=== PATIENT | female | born 1960 | race Caucasian/White ===

== ENCOUNTER 2023-03-05 06:37 | Emergency (ER) | payer MEDICARE, MEDICAID, SELFPAY ==
[2023-03-05 06:49] VITALS: BP 121/97; PULSE 106; RESP 18; TEMP 36.4; O2SAT 97
--- NOTE | 2023-03-05 06:55 | XRR_ITS ---
PROCEDURE INFORMATION: Exam: XR Left Shoulder Exam date and time: 03/05/2023 7:05 AM Age: 62 years old Clinical indication: Injury or trauma; Fall; Blunt trauma (contusions or hematomas); Shoulder; Left TECHNIQUE: Imaging protocol: Radiologic exam of the left shoulder. Views: 2 or more views. COMPARISON: No relevant prior studies available. FINDINGS: Bones/joints: Normal. Soft tissues: Normal. XR/XR shoulder LT min 2V* [id number] IMPRESSION: No acute findings.
--- NOTE | 2023-03-05 06:55 | XRR_ITS ---
PROCEDURE INFORMATION: Exam: XR Left Knee Exam date and time: 03/05/2023 7:05 AM Age: 62 years old Clinical indication: Injury or trauma; Fall; Blunt trauma; Knee; Left TECHNIQUE: Imaging protocol: Radiologic exam of the left knee. Views: 3 views. COMPARISON: No relevant prior studies available. FINDINGS: Bones/joints: Normal. Soft tissues: Normal. XR/XR knee LT 3V* [id number] IMPRESSION: No acute findings.
--- NOTE | 2023-03-05 06:55 | XRR_ITS ---
PROCEDURE INFORMATION: Exam: XR Chest Exam date and time: 03/05/2023 7:05 AM Age: 62 years old Clinical indication: Injury or trauma; Fall; Blunt trauma (contusions or hematomas) TECHNIQUE: Imaging protocol: Radiologic exam of the chest. Views: 1 view. COMPARISON: No relevant prior studies available. FINDINGS: Tubes, catheters and devices: Rectangular densities resembling spinal stimulator electrodes project over the lower thoracic spine. Alternatively, this may represent an external device. Lungs: Clear lungs. No focal consolidation. Pleural spaces: No large pleural effusion. No significant pneumothorax. Heart/Mediastinum: Cardiomediastinal silhouette is midline and within normal limits. Bones/joints: Osseous structures are within normal limits. XR/XR chest 1V portable [id number] IMPRESSION: No acute cardiopulmonary findings.
--- NOTE | 2023-03-05 06:55 | ED_ITS ---
HPI - Fall General: Chief Complaint: Fall Stated Complaint: fall, left side pain Time Seen by Provider: 03/05/23 06:51 Source: patient Mode of arrival: ambulatory Limitations: no limitations History of Present Illness: 62-year-old female states she fell yesterday. Ground-level fall states she had fell onto her left shoulder she states she had a fist her chest and it hit her in the middle of the chest. States today she has been having a sharp pain in the center of her chest along with her left shoulder worse with movement and palpation states she also hit her knee she has some minimal pain to her knee she denies any neck or head pain denies any loss consciousness Associated symptoms-after fall: Reports chest pain; Denies abdominal pain, headache(s) or neck pain Review of Systems Const: Denies: fever(s) or chills Eyes: Denies: eye discomfort ENMT: Denies: throat pain or dental pain Card: Reports: chest pain Resp: Denies: dyspnea GI: Denies: abdominal pain, nausea, vomiting or diarrhea Musc: Reports: extremity pain; Denies: neck pain or back pain Skin/Breast: Denies: rash Neuro: Denies: headache(s) Physical Exam Const: COMMON NORMALS: no acute distress, patient oriented x3 and healthy appearing HENMT: COMMON NORMALS: normocephalic and atraumatic HEAD & SCALP: normocephalic and atraumatic Eye: COMMON NORMALS: conjunctivae normal CONJUNCTIVA: Yes conjunctivae normal Neck/C-Spine: COMMON NORMALS: full ROM and supple CERVICAL SPINE: No pain with cervical ROM and No Cervical spine tenderness Chest: COMMONS NORMALS: normal inspection of the chest OTHER: Point tenderness in center of the chest Resp: COMMON NORMALS: normal respiratory effort, No retractions, No use of accessory muscles and clear to auscultation bilaterally AUSCULTATION: clear to auscultation bilaterally Cardio: COMMON NORMALS: regular rate, regular rhythm and No murmurs present (Cardio) RATE: regular rate RHYTHM: regular rhythm GI: COMMON NORMALS: Normal to inspection, nondistended, normoactive bowel sounds present, Soft to palpation, non-tender and no masses PALPATION: Yes Soft to palpation Extremity: COMMON NORMALS: normal to inspection and full ROM NARRATIVE EXTREMITY EXAM: Tenderness over left shoulder with no obvious deformity Neuro: COMMON NORMALS: patient oriented x3, moves all extremities and no focal motor deficits Psych: COMMON NORMALS: mental status grossly normal, Normal thought process present and cooperative THOUGHT PROCESS: Normal thought process present Skin: COMMON NORMALS: no rashes or lesions noted and no wounds GENERAL SKIN EXAM: no rashes or lesions noted Course Vital Signs: Vital signs: Vital Signs Temperature 97.6 F 03/05/23 06:49 Pulse Rate 89 03/05/23 07:37 Respiratory Rate 18 03/05/23 07:37 Blood Pressure 121/97 03/05/23 07:37 Pulse Oximetry 97 03/05/23 07:37 Oxygen Delivery Me thod Room Air 03/05/23 06:49 MDM - Fall Medical Decision Making Patient presents for chest wall and shoulder pain from a fall x-rays show no fracture she is well-appearing here we will prescribe her Naprosyn for home she is stable for discharge she is to follow-up with PCP and return if worsening she understands agrees to plan. Medical Records I reviewed the patient's medical records. Lab Data I reviewed the patient's lab results. Radiology Impressions Chest X-Ray 03/05/23 06:55 IMPRESSION: No acute cardiopulmonary findings. Knee X-Ray 03/05/23 06:55 IMPRESSION: No acute findings. Shoulder X-Ray 03/05/23 06:55 IMPRESSION: No acute findings. All radiology interpretation(s) finalized by discharge Discharge Plan Discharge Patient Disposition: Home Clinical Impression: Fall, Contusion Condition: Stable Prescriptions: New Naprosyn 500 mg tablet 500 mg PO BID PRN (Reason: pain) Qty: 20 0RF No Action ketoconazole 2 % shampoo 1 applic TOPICAL . DIRECTED trazodone 50 mg tablet 50 - 100 mg PO BEDTIME ibuprofen 800 mg tablet 800 mg PO DAILY PRN (Reason: Pain) pseudoephedrine-guaifenesin 60-600 mg tablet extended release 12 hr 1 tab PO BID PRN (Reason: Congestion) allopurinol 100 mg tablet 100 mg PO QAM estradiol 1 mg tablet 1 mg PO QAM levothyroxine 150 mcg tablet 150 mcg PO QAM metformin 500 mg tablet extended release 24 hr 500 mg PO QAM diazepam 5 mg tablet 5 mg PO TID PRN (Reason: Anxiety) rosuvastatin 10 mg tablet 10 mg PO BEDTIME topiramate 50 mg tablet 100 mg PO QAM fluocinonide 0.1 % cream 1 applic TOPICAL DAILY mometasone 0.1 % solution See Rx Instructions .ROUTE .COMPLEX Rx Instructions: APPLY FEW DROPS TOPICALLY TO THE AFFECTED AREA EVERY DAY Hair,Skin and Nails Tablet 1 tab PO DAILY Discharge Orders: Discharge ED (Routine); Ordered 03/05/23 Ordered By: Suze Jerome Referrals: Anton Hooper MD [Primary Care Provider] - 1-3 days Discharge Diet: Advance as tolerated Discharge Activity: Resume usual activity Patient Instructions: Contusion in Adults (ED) Coding Level of Care Code ED Casey Saw Operator for Khalif Rivas
[2023-03-05] MEDS: HYDROcodone-acetaminophen 5-325 mg Tablet 1 TAB PO (07:27)
[2023-03-05 07:37] VITALS: BP 121/97; PULSE 89; RESP 18; O2SAT 97
== END 2023-03-05 07:38 | disposition home or self-care (01) ==
PROVIDERS: Emergency Provider Emergency Medicine; PCP Family Medicine
DX: S20.214A Contusion of middle front wall of thorax, initial encounter (principal); S40.012A Contusion of left shoulder, initial encounter; W18.39XA Other fall on same level, initial encounter
CPT/HCPCS: 71045; 73030; 73562; 99284

== ENCOUNTER 2023-03-12 11:19 | Emergency (ER) | payer MEDICARE, MEDICAID, SELFPAY ==
[2023-03-12 11:24] VITALS: BP 139/82; PULSE 87; RESP 18; TEMP 36.6; O2SAT 97; BMI 44.9
--- NOTE | 2023-03-12 12:17 | W.ED.EXTPRO ---
Documented by User: Hyacinth Dodge PA-C 03/12/23 13:04 HPI - Extremity Problem General: Chief complaint: Extremity Injury, Upper Stated complaint: left shoulder pain/SOB Time Seen by Provider: 03/12/23 11:48 Source: patient Mode of arrival: ambulatory Limitations: no limitations History of Present Illness: 62 yr old male presents to the ER today for continued left shoulder and left knee pain after a fall 1 week ago. She reports she was told to treat conservatively and she has been however the pain is not improving at all. Patient reports any movement of the left shoulder causes severe pain. The pain radiates into her chest wall. Patient reports even to touch her left breast is very painful. She reports significant bruising of the left knee but bruising of the chest wall and shoulder has improved and is no longer present. Patient reports she has not been wearing a knee brace but has had continued knee pain. Patient reports she fell onto the knee. Denies any twisting type of injury. Patient reports that she was told by her doctor that if the pain did not improve she was to come back for a CT scan. Patient unable to have MRIs due to nerve stimulators. Patient has never seen orthopedic doctor locally. She denies any numbness or tingling in her hands or feet. Review of Systems General: Reports: 10 or more systems reviewed and unremarkable except in HPI and below Physical Exam Const: COMMON NORMALS: average body habitus, patient oriented x3, no limitations, healthy appearing, alert and well nourished; apparent distress (comfortable with movement of the L arm) Chest: OTHER: left sided chest wall/breast tenderness to palpation, no bruising or skin changes noted. Resp: COMMON NORMALS: normal respiratory effort, No retractions and clear to auscultation bilaterally AUSCULTATION: clear to auscultation bilaterally Cardio: COMMON NORMALS: regular rate, regular rhythm and No murmurs present (Cardio) RATE: regular rate RHYTHM: regular rhythm Extremity: NARRATIVE EXTREMITY EXAM: Patient has tenderness over the lateral left shoulder and into the neck/across scapula. Patient has pain with any abduction of the left shoulder. No obvious deformity. No swelling noted. No skin changes noted. Patient has mild to moderate swelling of the left knee. There is significant tenderness over the patella and area of healing bruising. Neuro: COMMON NORMALS: patient oriented x3 SENSORIUM/ORIENTATION: Yes alert Psych: COMMON NORMALS: mental status grossly normal, Normal thought process present and cooperative THOUGHT PROCESS: Normal thought process present Skin: NARRATIVE SKIN EXAM: Bruising noted to the left knee. Course ED course: Patient presents to the ER for continued left shoulder pain. This occurred after a fall a little over a week ago. Patient treated conservatively with anti-inflammatories and rest however pain not improving. Patient was told to follow-up for a CT scan. Denies any numbness or tingling or neurological deficits associated with pain. She reports healing bruising. She is taking [id number] anti-inflammatories for pain at this time. Patient unable to have an MRI due to nerve stimulators. Patient does not currently have an orthopedic doctor that she follows with. Vital Signs: Vital signs: Vital Signs Temperature 97.8 F 03/12/23 11:24 Pulse Rate 87 03/12/23 11:24 Respiratory Rate 18 03/12/23 11:24 Blood Pressure 139/82 03/12/23 11:24 Pulse Oximetry 97 03/12/23 11:24 Oxygen Delivery Me thod Room Air 03/12/23 11:24 MDM - Extremity (Nontraumatic) Medical Decision Making Discussed patient with Dr. Bishop who agrees that she needs to follow-up with orthopedics. Discussed with patient that we do not do MRIs or CT arthrograms through the ER typically and that is something that she likely needs to discuss with an orthopedic doctor. We will treat with a Medrol Dosepak and muscle relaxer to see if that helps with the left shoulder pain that is so acute. Recommend she get an elastic knee brace and wear. I will place a case management referral for orthopedic referral. Patient should continue anti-inflammatories but I will give her a few hydrocodone to help with severe pain. I suspect patient has some sort of rotator cuff injury. I think the knee is more of a contusion that is just taking a while to heal up. X-ray images were negative of both areas last week. Patient verbalized understanding and was in agreement with the treatment plan. No radiology studies performed this visit Critical Care Time Critical Care Time: Critical Care Time: No Discharge Plan Discharge Patient Disposition: Home Clinical Impression: Acute pain of left shoulder due to trauma, Acute pain of left knee Condition: Stable Prescriptions: New Medrol (Vahe) 4 mg tablets,dose pack See Rx Instructions PO .COMPLEX Qty: 21 0RF Rx Instructions: orally per package directions methocarbamol 750 mg tablet 750 mg PO Q8H Qty: 21 0RF hydrocodone-acetaminophen 5-325 mg tablet 1 tab PO Q8H PRN (Reason: pain) Qty: 9 0RF No Action ketoconazole 2 % shampoo 1 applic TOPICAL . DIRECTED trazodone 50 mg tablet 50 - 100 mg PO BEDTIME ibuprofen 800 mg tablet 800 mg PO DAILY PRN (Reason: Pain) pseudoephedrine-guaifenesin 60-600 mg tablet extended release 12 hr 1 tab PO BID PRN (Reason: Congestion) allopurinol 100 mg tablet 100 mg PO QAM estradiol 1 mg tablet 1 mg PO QAM levothyroxine 150 mcg tablet 150 mcg PO QAM metformin 500 mg tablet extended release 24 hr 500 mg PO QAM diazepam 5 mg tablet 5 mg PO TID PRN (Reason: Anxiety) rosuvastatin 10 mg tablet 10 mg PO BEDTIME topiramate 50 mg tablet 100 mg PO QAM mometasone 0.1 % solution See Rx Instructions .ROUTE .COMPLEX Rx Instructions: APPLY FEW DROPS TOPICALLY TO THE AFFECTED AREA EVERY DAY Hair,Skin and Nails Tablet 1 tab PO DAILY naproxen [Naprosyn] 500 mg tablet 500 mg PO BID PRN (Reason: pain) Qty: 20 0RF diclofenac sodium 50 mg tablet,delayed release (DR/EC) 50 mg PO BID PRN (Reason: Pain) Discharge Orders: Discharge ED (Routine); Ordered 03/12/23 Ordered By: Hyacinth Dodge Referrals: Anton Hooper MD [Primary Care Provider] - Discharge Diet: Usual diet Discharge Activity: Limit activity as instructed Patient Instructions: Opioid Safety, Pain Management Activity Restrictions/Additional Instructions: Get elastic knee brace and wear on left knee as discussed. Recommend pendulum exercises to keep shoulder from stiffening and minimal lifting when using the L shoulder until further work up. Medrol Dosepak, Robaxin, and hydrocodone as prescribed. You should be contacted by patient care technician for follow-up with Ortho. Coding Level of Care Code ED Security Project Manager for [employer] Documented by User: Braulio Gonzalez DO 03/12/23 14:58 HPI - Extremity Problem General: Chief complaint: Extremity Injury, Upper Stated complaint: left shoulder pain/SOB Time Seen by Provider: 03/12/23 11:48 Course Vital Signs: Vital signs: Vital Signs Temperature 97.8 F 03/12/23 11:24 Pulse Rate 87 03/12/23 11:24 Respiratory Rate 18 03/12/23 11:24 Blood Pressure 139/82 03/12/23 11:24 Pulse Oximetry 97 03/12/23 11:24 Oxygen Delivery Me thod Room Air 03/12/23 11:24 MDM - Extremity (Nontraumatic) Medical Decision Making Discussed patient with Dr. Bishop who agrees that she needs to follow-up with orthopedics. Discussed with patient that we do not do MRIs or CT arthrograms through the ER typically and that is something that she likely needs to discuss with an orthopedic doctor. We will treat with a Medrol Dosepak and muscle relaxer to see if that helps with the left shoulder pain that is so acute. Recommend she get an elastic knee brace and wear. I will place a case management referral for orthopedic referral. Patient should continue anti-inflammatories but I will give her a few hydrocodone to help with severe pain. I suspect patient has some sort of rotator cuff injury. I think the knee is more of a contusion that is just taking a while to heal up. X-ray images were negative of both areas last week. Patient verbalized understanding and was in agreement with the treatment plan. Chart reviewed and patient discussed with midlevel. Agree with assessment and plan. Discharge Plan Discharge Patient Disposition: Home Clinical Impression: Acute pain of left shoulder due to trauma, Acute pain of left knee Condition: Stable Prescriptions: New Medrol (Vahe) 4 mg tablets,dose pack See Rx Instructions PO .COMPLEX Qty: 21 0RF Rx Instructions: orally per package directions methocarbamol 750 mg tablet 750 mg PO Q8H Qty: 21 0RF hydrocodone-acetaminophen 5-325 mg tablet 1 tab PO Q8H PRN (Reason: pain) Qty: 9 0RF No Action ketoconazole 2 % shampoo 1 applic TOPICAL . DIRECTED trazodone 50 mg tablet 50 - 100 mg PO BEDTIME ibuprofen 800 mg tablet 800 mg PO DAILY PRN (Reason: Pain) pseudoephedrine-guaifenesin 60-600 mg tablet extended release 12 hr 1 tab PO BID PRN (Reason: Congestion) allopurinol 100 mg tablet 100 mg PO QAM estradiol 1 mg tablet 1 mg PO QAM levothyroxine 150 mcg tablet 150 mcg PO QAM metformin 500 mg tablet extended release 24 hr 500 mg PO QAM diazepam 5 mg tablet 5 mg PO TID PRN (Reason: Anxiety) rosuvastatin 10 mg tablet 10 mg PO BEDTIME topiramate 50 mg tablet 100 mg PO QAM mometasone 0.1 % solution See Rx Instructions .ROUTE .COMPLEX Rx Instructions: APPLY FEW DROPS TOPICALLY TO THE AFFECTED AREA EVERY DAY Hair,Skin and Nails Tablet 1 tab PO DAILY naproxen [Naprosyn] 500 mg tablet 500 mg PO BID PRN (Reason: pain) Qty: 20 0RF diclofenac sodium 50 mg tablet,delayed release (DR/EC) 50 mg PO BID PRN (Reason: Pain) Discharge Orders: Discharge ED (Routine); Ordered 03/12/23 Ordered By: Hyacinth Dodge Referrals: Anton Hooper MD [Primary Care Provider] - Discharge Diet: Usual diet Discharge Activity: Limit activity as instructed Patient Instructions: Opioid Safety, Pain Management Activity Restrictions/Additional Instructions: Get elastic knee brace and wear on left knee as discussed. Recommend pendulum exercises to keep shoulder from stiffening and minimal lifting when using the L shoulder until further work up. Medrol Dosepak, Robaxin, and hydrocodone as prescribed. You should be contacted by patient care technician for follow-up with Ortho. Coding Level of Care Code ED Security Project Manager for Khalif Rivas
--- NOTE | 2023-03-13 08:51 | PC.SOCIAL ---
Ortho Referral Referral message sent to ortho clinic at this time. Clinic to contact patient with appt date/time.
== END 2023-03-12 12:36 | disposition home or self-care (01) ==
PROVIDERS: Emergency Provider Physician Assistant; PCP Family Medicine
DX: G89.11 Acute pain due to trauma (principal); M25.562 Pain in left knee; M25.512 Pain in left shoulder; Z79.84 Long term (current) use of oral hypoglycemic drugs; W19.XXXA Unspecified fall, initial encounter
CPT/HCPCS: 99283

== ENCOUNTER 2023-04-14 13:04 | Outpatient (CLI) | payer MEDICARE, MEDICAID, SELFPAY ==
--- NOTE | 2023-04-14 13:28 | CT_ITS ---
WS: [id number] CT chest w con* [id number] HISTORY: CHEST WALL PAIN TECHNIQUE: Axial imaging performed through the thorax. Coronal and sagittal reformats are submitted. All CT scans at [facility] use at least one of these dose optimization techniques: automated exposure control; mA and/or kV adjustment per patient size (includes targeted exams where dose is mat ched to clinical indication); or iterative reconstruction. CONTRAST: Omnipaque 350; 100 mL IV. DLP: 694.22 mGy.cm COMPARISON: None available. Lungs and central airway: Lungs are well expanded. No mass or nodule. There is mild hazy attenuation and groundglass throughout both lungs. Greatest in the lower lung soler. There is also subtle tree-i n-bud airspace disease. Pleura: Normal. No pleural effusion. Heart and pericardium: Normal size heart with no pericardial effusion. Mediastinum and kaya: No mediastinum or hilar adenopathy. Vessels: Normal size aortic and pulmonary artery. No coronary artery calcifications. Chest wall and lower neck: No soft tissue masses. No soft tissue hematoma or edema. Upper abdomen: Hepatic steatosis. Prior cholecystectomy. No adrenal mass. Osseous structures: Healing anterior rib fracture involving the LEFT sixth rib. Suspect there may be a nondisplaced fracture involving the adjacent seventh rib due to its slight angulation. No additiona l fractures are identified. Dorsal column stimulator electrodes are noted in the mid thoracic spine. IMPRESSION: 1. Healing nondisplaced anterior LEFT sixth rib fracture. Suspicious but indeterminate for mild buckl ing and incomplete fracture of the LEFT seventh rib. 2. No pneumothorax or pulmonary contusion. 3. Diffuse hazy attenuation and groundglass appearance throughout both lungs. This can be seen with r espiratory bronchiolitis or hypersensitivity pneumonia.
[2023-04-14 14:14] LABS: Blood Urea Nitrogen 18 mg/dL (8-23)
[2023-04-14] MEDS: iohexol 350 mg/mL 500 mL Btl (per mL) IV (14:20)
== END 2023-04-14 13:05 | disposition home or self-care (01) ==
LOC: RAD 13:04
PROVIDERS: PCP Family Medicine; Visit Provider Family Medicine
DX: R07.89 Other chest pain (principal); S22.32XA Fracture of one rib, left side, initial encounter for closed fracture; X58.XXXA Exposure to other specified factors, initial encounter
CPT/HCPCS: 71260; 82565; 84520; Q9967

== ENCOUNTER → 2023-07-07 09:41 | Outpatient (BNVA) | payer MEDICARE, MEDICAID, SELFPAY | PROVIDERS: PCP Family Medicine; Visit Provider Podiatrist Foot & Ankle Surgery | DX: Q84.5 Enlarged and hypertrophic nails (principal); L84 Corns and callosities; I73.9 Peripheral vascular disease, unspecified | CPT/HCPCS: 11057; 99203 ==

== ENCOUNTER → 2023-09-08 11:14 | Outpatient (BNVA) | payer MEDICARE, MEDICAID, SELFPAY | PROVIDERS: PCP Family Medicine; Visit Provider Podiatrist Foot & Ankle Surgery | DX: Q84.5 Enlarged and hypertrophic nails (principal); L84 Corns and callosities; I73.9 Peripheral vascular disease, unspecified | CPT/HCPCS: 11057 ==

== ENCOUNTER → 2023-12-01 10:43 | Outpatient (BNVA) | payer MEDICARE, MEDICAID, SELFPAY | PROVIDERS: PCP Family Medicine; Visit Provider Podiatrist Foot & Ankle Surgery | DX: Q84.5 Enlarged and hypertrophic nails (principal); L84 Corns and callosities; I73.9 Peripheral vascular disease, unspecified | CPT/HCPCS: 17110 ==

== ENCOUNTER → 2024-12-18 15:34 | Outpatient (BNVA) | payer MEDICARE, MEDICAID, SELFPAY | PROVIDERS: PCP Family Medicine; Visit Provider Podiatrist Foot & Ankle Surgery | DX: L84 Corns and callosities (principal); L85.9 Epidermal thickening, unspecified; Q84.5 Enlarged and hypertrophic nails; I73.9 Peripheral vascular disease, unspecified | CPT/HCPCS: 17111; 99214 ==

== ENCOUNTER 2024-12-27 14:31 | Outpatient (CLI) | payer MEDICARE, MEDICAID, SELFPAY ==
--- NOTE | 2024-12-27 14:36 | MM_ITS ---
WS: [id number] BILATERAL 3D TOMOSYNTHESIS DIGITAL SCREENING MAMMOGRAM WITH CAD CLINICAL INFORMATION: SCREENING HISTORY: Screening mammogram. No current complaints. COMPARISON: Baseline TECHNIQUE: Bilateral CC and MLO views. FINDINGS: Fatty-replaced breasts bilaterally. No suspicious focal mass, asymmetry, calcifications, or architectural distortion. No evidence of malignancy. MM/MM scr BI tomosynthesis [id number] IMPRESSION: DENSITY: The breasts are almost entirely fatty. BI-RADS: 1 - Negative. FOLLOW UP: 1 Year Follow-up Recommend return to annual screening mammography.
== END 2024-12-27 14:32 | disposition home or self-care (01) ==
LOC: RAD 14:32
PROVIDERS: PCP Family Medicine; Visit Provider Family Medicine
DX: Z12.31 Encounter for screening mammogram for malignant neoplasm of breast (principal); R92.313 Mammographic fatty tissue density, bilateral breasts
CPT/HCPCS: 77063; 77067